=== PATIENT | female | born 1990 | race Caucasian/White ===

== ENCOUNTER 2020-07-31 11:55 | Inpatient (IN) | payer BC, OTHER ==
[2020-07-31 13:27] VITALS: BMI 47.9
[2020-07-31] MEDS: ELECTROLYTE-148 SOLN 1,000 ML IV SCH ×2 (13:30→23:00)
[2020-07-31 14:03] LABS: BASO % 0.1 % (0-2.0); EOS % 1.5 % (0-4.5); HEMATOCRIT 31.4 % (32.4-45.2); HEMOGLOBIN 10.5 GM/dL (10.7-15.3); LYMPH % 15.1 % (8-40); MCHC 33.5 g/dl (32.0-36.0); MEAN CELL VOLUME 83.8 fl (80-96); MEAN PLT VOLUME 9.1 fl (7.5-11.1); MONO % 6.4 % (3.8-10.2); NEUT % 76.9 % (42.8-82.8); PLATELET COUNT 203 K/MM3 (134-434); RBC 3.75 M/mm3 (3.60-5.2); RDW 15.7 % (11.6-15.6); WHITE BLOOD COUNT 8.9 K/mm3 (4.0-10.0)
[2020-07-31 14:10] LABS: INR 0.9 (0.83-1.09); PROTHROMBIN TIME (PATIENT) 10.6 SEC (9.7-13.0)
[2020-07-31 14:13] LABS: ACTIVATED PTT 26.1 SECONDS (25.2-36.5)
[2020-07-31] MEDS ORDERED: DINOPROSTONE 10 MG VAGINAL SUPPOSITORY VG ONE (14:15)
--- NOTE | 2020-07-31 14:17 | HP ---
Past Medical History - Primary Care Physician PCP:: Jenna Crocker - Admission Chief Complaint: oligohydramnios. obesity History of Present Illness: 30 yo EDC EGA 39 week admitted due to oligo and obesity for induction History Source: Patient Limitations to Obtaining History: No Limitations - Past Medical History ...: 1 ...Para: 0 ...Term: 0 ...: 0 ...Spon : 0 ...Induced : 0 ...Living Children: 0 ...Multiple Gestation: 0 ...LMP: 11/02/19 ... Weeks Gestation by Dates: 38.4 ...EDC by Dates: 08/10/20 ...EDC by Sono: 08/08/20 - Past Surgical History Past Surgical History: Yes: None Hx Myomectomy: No Hx Transabdominal Cerclage: No - Smoking History Smoking history: Never smoked Have you smoked in the past 12 months: No - Alcohol/Substance Use Hx Alcohol Use: No Home Medications - Allergies Allergies/Adverse Reactions: Allergies Allergy/AdvReac Type Severity Reaction Status Date / Time No Known Allergies Allergy Verified 07/31/20 12:46 - Home Medications Home Medications: Ambulatory Orders Pnv No.95/Ferrous Fum/Folic AC [ Formula] 1 each PO DAILY 07/31/20 Review of Systems - Review of Systems Constitutional: reports: No Symptoms Eyes: reports: No Symptoms HENT: reports: No Symptoms Neck: reports: No Symptoms Cardiovascular: reports: No Symptoms Respiratory: reports: No Symptoms Gastrointestinal: reports: No Symptoms Genitourinary: reports: No Symptoms Breasts: reports: No Symptoms Reported Musculoskeletal: reports: No Symptoms Integumentary: reports: No Symptoms Neurological: reports: No Symptoms Endocrine: reports: No Symptoms Hematology/Lymphatic: reports: No Symptoms Psychiatric: reports: No Symptoms Physical Exam - Maternity Vital Signs: Vital Signs Temperature 98.2 F 07/31/20 13:00 Pulse Rate 57 L 07/31/20 13:00 Respiratory Rate 18 07/31/20 13:00 Blood Pressure 144/73 07/31/20 13:00 O2 Sat by Pulse Oximetry (%) 98 07/31/20 12:24 Constitutional: Yes: Well Nourished, No Distress, Obese Neck: Yes: WNL Cardiovascular: Yes: WNL Lungs: Clear to auscultation Breast(s): Yes: WNL - Abdominal Exam/OB Number of Fetuses: Single Presentation: Vertex Contractions: No Monitor Mode: External Category: I - Labs Lab Results: CBC, BMP 07/31/20 13:45 Hemorrhage Risk Assessment - Risk Factors Risk Score: 0 Risk Level: Low Risk Problem List - Problems (1) with 38 completed weeks gestation Code(s): Z3A.38 - 38 WEEKS GESTATION OF (2) Oligohydramnios Code(s): O41.00X0 - OLIGOHYDRAMNIOS, UNSP TRIMESTER, NOT APPLICABLE OR UNSP (3) Hypertension affecting in third trimester Code(s): O16.3 - UNSPECIFIED MATERNAL HYPERTENSION, THIRD TRIMESTER Assessment/Plan IUP at 38.6 Cat 1 Oligo Gestational Hypertension Plan Cervidil Labetalol
[2020-07-31 14:34] LABS: BLOOD UREA NITROGEN 7.5 mg/dL (7-18); CALCIUM 8.7 mg/dL (8.5-10.1); CREATININE 0.5 mg/dL (0.55-1.3); POTASSIUM 4.2 mmol/L (3.5-5.1)
[2020-07-31] MEDS ORDERED: LABETALOL HCL 200 MG TABLET (FP) ONE (23:32)
[2020-07-31] MEDS ORDERED: LABETALOL HCL 200 MG TABLET (FP) PO ONE (23:50)
[2020-08-01 00:36] LABS: RETICULOCYTES 2.43 % (0.5-1.5)
[2020-08-01 00:42] LABS: URIC ACID 3.3 mg/dL (2.6-7.2)
[2020-08-01] MEDS ORDERED: LABETALOL HCL 200 MG TABLET (FP) PO ONE ×2 (01:15→18:00)
--- NOTE | 2020-08-01 05:11 | PN ---
Ante-Partal Exam - Subjective Subjective: Pt doing well unaware of contraction Pt with elevated BP and given labetalol Vital Signs: Vital Signs Temperature 98.2 F 07/31/20 22:15 Pulse Rate 64 08/01/20 01:10 Respiratory Rate 08/01/20 01:10 Blood Pressure 140/74 08/01/20 01:10 O2 Sat by Pulse Oximetry (%) 98 07/31/20 12:24 Bleeding: No Headache: No Visual changes: No Right upper quadrant pain: No - Contractions Contractions: No Regularity: Irritability Intensity: Unaware Monitor Mode: External - Exam during Labor Heart Rate: 140 Variability: Moderate Heart Rate Location: [facility] Category: I Monitor Accelerations: Present Monitor Decelerations: None Exam: Vaginal Dilatation (cm): FT Amniotic Membrane Status: Intact Presentation: Vertex Station: -2 - Intrapartum Hemorrhage Risk Risk Score: 0 Risk Level: Low Risk - Assessment/Plan Assessment/Plan: obesity gestational htn cat 1 sp cervidil oligo Plan pit jun
[2020-08-01] MEDS: ELECTROLYTE-148 SOLN 1,000 ML IV SCH ×3 (06:15→22:00)
[2020-08-01] MEDS: OXYTOCIN 30 UNITS in 0.9% NS 30 UNIT/500 ML INFUS.BAG IVPB SCH (08:00)
[2020-08-01] MEDS ORDERED: OXYTOCIN 30 UNITS in 0.9% NS 30 UNIT/500 ML INFUS.BAG IVPB ONE (08:03)
[2020-08-01] MEDS ORDERED: BUTORPHANOL TARTRATE 2 MG/ML VIAL ONE (16:35)
[2020-08-01] MEDS ORDERED: PROMETHAZINE HCL 25 MG/1 ML VIAL ONE (16:35)
[2020-08-01] MEDS ORDERED: BUTORPHANOL TARTRATE 2 MG/ML VIAL IVPUSH ONE (16:45)
[2020-08-01] MEDS ORDERED: PROMETHAZINE HCL 25 MG/1 ML VIAL IVPUSH ONE (16:45)
[2020-08-01] MEDS ORDERED: LABETALOL HCL 200 MG TABLET (FP) ONE ×2 (17:36→21:31)
--- NOTE | 2020-08-01 18:38 | PN ---
Ante-Partal Exam - Subjective Subjective: Pt on 11 mu pitocin Vital Signs: Vital Signs Temperature 98.1 F 08/01/20 16:00 Pulse Rate 65 08/01/20 18:00 Respiratory Rate 20 08/01/20 18:00 Blood Pressure 154/75 08/01/20 18:00 O2 Sat by Pulse Oximetry (%) 98 07/31/20 12:24 Bleeding: No Headache: No Visual changes: No Right upper quadrant pain: No - Contractions Contractions: Yes Regularity: Regular Intensity: Moderate Monitor Mode: External - Exam during Labor Heart Rate: 150 Variability: Moderate Heart Rate Location: [facility] Category: I Monitor Accelerations: Present Monitor Decelerations: None Exam: Vaginal Dilatation (cm): 2--3 Effacement (%): 80 Amniotic Membrane Status: Ruptured (attempted arom) Presentation: Vertex Station: -2 - Intrapartum Hemorrhage Risk Medium Risk Factors: None High Risk Factors: None Risk Score: 0 Risk Level: Low Risk - Assessment/Plan Assessment/Plan: Active labor cat1 atttempted arom obesity plan continue present management pt refusing epidural at this time
[2020-08-01] MEDS ORDERED: FENTANYL/BUPIVACAINE/NS/PF - PCEA - 50 ML DISP.SYRIN EP ONE (21:02)
[2020-08-01] MEDS ORDERED: BUPIVACAINE HCL/PF 0.25% (2.5MG/ML) 10 ML VIAL ONE (21:03)
[2020-08-01] MEDS: LABETALOL HCL 200 MG TABLET (FP) PO SCH (21:33)
[2020-08-01 21:38] LABS: HEMATOCRIT 33.1 % (32.4-45.2); HEMOGLOBIN 10.9 GM/dL (10.7-15.3); MCH 27.8 pg (25.7-33.7); MCHC 32.8 g/dl (32.0-36.0); MEAN CELL VOLUME 84.7 fl (80-96); MEAN PLT VOLUME 8.5 fl (7.5-11.1); PLATELET COUNT 198 K/MM3 (134-434); RBC 3.91 M/mm3 (3.60-5.2); RDW 15.5 % (11.6-15.6); WHITE BLOOD COUNT 11.9 K/mm3 (4.0-10.0)
[2020-08-01] MEDS ORDERED: NALOXONE HCL 0.4 MG/ML VIAL IVPUSH PRN (21:53)
[2020-08-01 21:55] LABS: INR 0.89 (0.83-1.09); PROTHROMBIN TIME (PATIENT) 10.5 SEC (9.7-13.0)
[2020-08-01 21:57] LABS: ACTIVATED PTT 26.8 SECONDS (25.2-36.5)
[2020-08-01] MEDS ORDERED: FENTANYL/BUPIVACAINE/NS/PF - PCEA - 50 ML DISP.SYRIN EP SCH (22:00)
[2020-08-02] MEDS ORDERED: FENTANYL/BUPIVACAINE/NS/PF - PCEA - 50 ML DISP.SYRIN EP ONE (03:11)
[2020-08-02] MEDS ORDERED: ELECTROLYTE-148 SOLN 500 ML IV ONE (03:30)
[2020-08-02] MEDS ORDERED: CITRIC ACID/SODIUM CITRATE 30 ML UNIT-DOSE CUP PO ONE ×2 (03:30→03:59)
--- NOTE | 2020-08-02 03:52 | PN ---
Ante-Partal Exam - Subjective Vital Signs: Vital Signs Temperature 98.1 F 08/01/20 16:00 Pulse Rate 72 08/02/20 03:00 Respiratory Rate 20 08/02/20 03:00 Blood Pressure 138/81 08/02/20 03:00 O2 Sat by Pulse Oximetry (%) 100 08/02/20 03:00 Bleeding: No Headache: No Visual changes: No Right upper quadrant pain: No - Exam during Labor Variability: Moderate Category: II Monitor Decelerations: Early Exam: Vaginal Dilatation (cm): 5 Effacement (%): 80 Amniotic Membrane Status: Ruptured Presentation: Vertex Station: -2 - Assessment/Plan Assessment/Plan: Nonreassuring Cat2 Oligo failure to progress Obesity Plan Will do CS - pt and fob agrees notify anesthesia notify merchandising lead
[2020-08-02] MEDS ORDERED: WITCH HAZEL 50% (TUCKS) 40 PAD/JAR PAD TP PRN (03:56)
[2020-08-02] MEDS ORDERED: METHYLERGONOVINE MALEATE 0.2 MG/1 ML AMP IM PRN (03:56)
[2020-08-02] MEDS ORDERED: BENZOCAINE 28 GM HEMORRHOIDAL OINTMENT RC PRN (03:56)
[2020-08-02] MEDS ORDERED: oxyCODONE HCL 5 MG TABLET PO PRN (03:56)
[2020-08-02] MEDS ORDERED: diphenhydrAMINE HCL 25 MG CAPSULE (FP) PO PRN (03:56)
[2020-08-02] MEDS ORDERED: BENZOCAINE 20% 57 GM BOTTLE TP PRN (03:56)
[2020-08-02] MEDS ORDERED: ACETAMINOPHEN 1000 MG/100 ML VIAL (NON FORMULARY) IVPB PRN (03:58)
[2020-08-02] MEDS ORDERED: LIDO 2%/EPI 1:200000 PRESRVFRE (20 ML SDVIAL) ONE (04:24)
[2020-08-02] MEDS ORDERED: morphine SULFATE/PF 0.5 MG/ML (2cc Syringe - QUVA) ONE ×2 (04:33→05:32)
[2020-08-02] MEDS ORDERED: KETOROLAC TROMETHAMINE 30 MG/1 ML VIAL ONE (04:34)
[2020-08-02] MEDS ORDERED: OXYTOCIN 10 UNITS/ML VIAL ONE (04:34)
[2020-08-02] MEDS ORDERED: ceFAZolin SODIUM 1 GM VIAL ONE (04:34)
[2020-08-02] MEDS ORDERED: OXYTOCIN 20 UNITS in 0.9% NS 20 UNIT/1,000 ML INFUS.BAG IV ONE (05:55)
[2020-08-02] MEDS ORDERED: ONDANSETRON 4 MG/2 ML VIAL IVPUSH PRN (05:59)
[2020-08-02] MEDS: OXYTOCIN 20 UNITS in 0.9% NS 20 UNIT/1,000 ML INFUS.BAG IV SCH ×2 (06:00→15:48)
[2020-08-02] MEDS: LABETALOL HCL 200 MG TABLET (FP) PO SCH ×3 (06:30→21:23)
--- NOTE | 2020-08-02 06:37 | OP ---
Operative Note - Note: Operative Date: 08/02/20 Pre-Operative Diagnosis: nonreasurring tracing. obesity. oligohydramnios. iup at 39 week Operation: Primary Low transverse section Findings: live male infant Post-Operative Diagnosis: Same as Pre-op Surgeon: Jenna Crocker E Mail System Administrator: Jj Wright Anesthesia: Epidural Estimated Blood Loss (mls): 600 Operative Report Dictated: Yes
[2020-08-02] MEDS ORDERED: LABETALOL HCL 200 MG TABLET (FP) ONE (06:54)
[2020-08-02 07:20] LABS: CORD BASE EXCESS -3.7 mmol/L (0-2); CORD PCO2 47.4 mmHg (30-78); CORD pH 7.303 (7.14-7.44)
[2020-08-02 07:23] LABS: CORD HCO3 25.3 mmHg (20-29); CORD PCO2 65.5 mmHg (30-78); CORD pH 7.204 (7.14-7.44)
[2020-08-02] MEDS ORDERED: ACETAMINOPHEN INJECTION 100 ML IVPB ONE (08:20)
[2020-08-02] MEDS ORDERED: CEFAZOLIN 1 GM in DEXTROSE 5%-WATER - 50 ML IVPB SCH (10:00)
[2020-08-02] MEDS: IBUPROFEN 800 MG/8 ML IJ IVPB PRN ×2 (15:47→22:15)
[2020-08-02] MEDS: CEFAZOLIN 1 GM/D5W 1 GM/50 ML BAG IVPB SCH (17:44)
[2020-08-02] MEDS: ELECTROLYTE-148 SOLN 1,000 ML IV SCH (20:03)
[2020-08-02] MEDS: OXYTOCIN 30 UNITS in 0.9% NS 30 UNIT/500 ML INFUS.BAG IVPB SCH (20:03)
[2020-08-02] MEDS: BUTORPHANOL TARTRATE 1 MG/ML VIAL IVPB SCH ×2 (20:05→20:06)
[2020-08-03] MEDS: CEFAZOLIN 1 GM/D5W 1 GM/50 ML BAG IVPB SCH (02:37)
[2020-08-03] MEDS ORDERED: BISACODYL 10 MG SUPP.RECT PR PRN (03:56)
[2020-08-03] MEDS: OXYTOCIN 20 UNITS in 0.9% NS 20 UNIT/1,000 ML INFUS.BAG IV SCH (05:54)
[2020-08-03] MEDS: ELECTROLYTE-148 SOLN 1,000 ML IV SCH (05:55)
[2020-08-03] MEDS: OXYTOCIN 30 UNITS in 0.9% NS 30 UNIT/500 ML INFUS.BAG IVPB SCH (05:55)
[2020-08-03] MEDS: LABETALOL HCL 200 MG TABLET (FP) PO SCH ×3 (06:32→22:05)
[2020-08-03 08:52] LABS: HEMOGLOBIN 8.1 GM/dL (10.7-15.3); MCH 28.7 pg (25.7-33.7); MEAN CELL VOLUME 84.5 fl (80-96); MEAN PLT VOLUME 8.5 fl (7.5-11.1); PLATELET COUNT 147 K/MM3 (134-434); RBC 2.84 M/mm3 (3.60-5.2); RDW 15.6 % (11.6-15.6); WHITE BLOOD COUNT 8.3 K/mm3 (4.0-10.0)
[2020-08-03] MEDS: SIMETHICONE 80 MG TAB.CHEW (FP) PO PRN ×2 (10:39→22:05)
[2020-08-03] MEDS: ACETAMINOPHEN 325 MG TABLET (FP) PO PRN ×2 (10:39→22:08)
[2020-08-03] MEDS: oxyCODONE HCL 5 MG TABLET PO PRN (10:40)
[2020-08-03] MEDS ORDERED: DIPHTH,PERTUSS(ACELL),TET 0.5 ML DISP.SYRIN IM ONE (13:00)
--- NOTE | 2020-08-03 13:59 | PN ---
Progress Note (short form) - Note Progress Note: 30F s/p C/S +DM. pt doing well. pain controlled. good result anesthetic care
[2020-08-04] MEDS: LABETALOL HCL 200 MG TABLET (FP) PO SCH (06:20)
[2020-08-04] MEDS: ACETAMINOPHEN 325 MG TABLET (FP) PO PRN ×3 (06:21→21:12)
[2020-08-04] MEDS: SIMETHICONE 80 MG TAB.CHEW (FP) PO PRN ×2 (06:21→21:11)
--- NOTE | 2020-08-04 09:34 | PN ---
Progress Note (SOAP) - Subjective Chief Complaint: Pt on labetalol tid pt doing well - Current Medications Current Medications: Active Medications Acetaminophen (Tylenol -) 650 mg PO Q4H PRN PRN Reason: FEVER Last Admin: 08/04/20 06:21 Dose: 650 mg Documented by: Benzocaine (Americaine 20% [place] -) 1 spray TP PRN PRN PRN Reason: Pain - Topical Benzocaine (Americaine Ointment -) 1 applic RC PRN PRN PRN Reason: Pain - Topical Bisacodyl (Dulcolax Suppository -) 10 mg [place] PRN PRN PRN Reason: CONSTIPATION Diphenhydramine HCl (Benadryl -) 25 mg PO Q6H PRN PRN Reason: FOR ITCHING Oxytocin/Sodium Chloride (Normal Saline+30 Units Oxytocin) 30 unit in 500 mls @ 1 mls/hr IVPB [facility]; Protocol Last Admin: 08/03/20 05:55 Dose: Not Given Documented by: Oxytocin/Sodium Chloride (Normal Saline+20 Units Oxytocin -) 20 unit in 1,000 mls @ 125 mls/hr IV ASDIR [facility] Last Admin: 08/03/20 05:54 Dose: 125 mls/hr Documented by: Parenteral Electrolytes (Plasma-Lyte 148 -) 1,000 mls @ 125 mls/hr IV ASDIR [facility] Last Admin: 08/03/20 05:55 Dose: Not Given Documented by: Ibuprofen (Caldolor Injection -) 800 mg IVPB Q6H PRN PRN Reason: Fever - If PO not effective. Last Admin: 08/02/20 22:15 Dose: 800 mg Documented by: Labetalol HCl (Normodyne -) 200 mg PO TID [facility] Last Admin: 08/04/20 06:20 Dose: 200 mg Documented by: Methylergonovine Maleate (Methergine Injection -) 0.2 mg IM Q4H PRN PRN Reason: EXCESSIVE BLEEDING Naloxone HCl (Narcan -) 0.4 mg IVPUSH PRN PRN PRN Reason: Sedation Ondansetron HCl (Zofran Injection) 4 mg IVPUSH Q4H PRN PRN Reason: NAUSEA Oxycodone HCl (Roxicodone -) 5 mg PO Q4H PRN PRN Reason: PAIN LEVEL 1 - 3 Last Admin: 08/03/20 10:40 Dose: 5 mg Documented by: Oxycodone HCl (Roxicodone -) 10 mg PO Q4H PRN PRN Reason: PAIN LEVEL 4 - 6 Senna/Docusate Sodium (Pericolace -) 2 tablet PO HS PRN PRN Reason: CONSTIPATION Last Admin: 08/03/20 22:06 Dose: 2 tablet Documented by: Simethicone (Mylicon -) 80 mg PO Q4H PRN PRN Reason: GAS Last Admin: 08/04/20 06:21 Dose: 80 mg Documented by: Prec[place]/Glycerin (Tucks Pads -) 1 pad TP PRN PRN PRN Reason: Pain - Topical - Objective Vital Signs: Vital Signs Temperature 97.8 F 08/04/20 06:17 Pulse Rate 96 H 08/04/20 06:17 Respiratory Rate 08/04/20 06:17 Blood Pressure 143/98 08/04/20 06:17 O2 Sat by Pulse Oximetry (%) 97 08/03/20 14:19 Constitutional: Yes: Well Nourished, Obese Gastrointestinal: Yes: WNL, Soft ....Post : Yes: Uterus firm, Uterus non-tender Extremities: Yes: WNL Edema: Yes Edema: LLE: Trace, RLE: Trace Wound/Incision: Yes: Clean/Dry, Well Approximated, Steri Strips, Open to air Neurological: Yes: WNL, Alert, Oriented Labs Lab Results: CBCD WBC 8.3 K/mm3 (4.0-10.0) 08/03/20 07:55 RBC 2.84 M/mm3 (3.60-5.2) L 08/03/20 07:55 Hgb 8.1 GM/dL (10.7-15.3) L 08/03/20 07:55 Hct 24.0 % (32.4-45.2) L D 08/03/20 07:55 MCV 84.5 fl (80-96) 08/03/20 07:55 MCHC 34.0 g/dl (32.0-36.0) 08/03/20 07:55 RDW 15.6 % (11.6-15.6) 08/03/20 07:55 Plt Count 147 K/MM3 (134-434) D 08/03/20 07:55 MPV 8.5 fl (7.5-11.1) 08/03/20 07:55 CMP Sodium 139 mmol/L (136-145) 07/31/20 13:45 Potassium 4.2 mmol/L (3.5-5.1) 07/31/20 13:45 Chloride 107 mmol/L (98-107) 07/31/20 13:45 Carbon Dioxide 25 mmol/L (21-32) 07/31/20 13:45 Anion Gap 7 MMOL/L (8-16) L 07/31/20 13:45 BUN 7.5 mg/dL (7-18) 07/31/20 13:45 Creatinine 0.5 mg/dL (0.55-1.3) L 07/31/20 13:45 Random Glucose 92 mg/dL (74-106) 07/31/20 13:45 Calcium 8.7 mg/dL (8.5-10.1) 07/31/20 13:45 AST 17 U/L (15-37) 07/31/20 23:45 ALT 22 U/L (13-61) 07/31/20 23:45 Problem List - Problems (1) with 38 completed weeks gestation Code(s): Z3A.38 - 38 WEEKS GESTATION OF (2) Oligohydramnios Code(s): O41.00X0 - OLIGOHYDRAMNIOS, UNSP TRIMESTER, NOT APPLICABLE OR UNSP (3) Hypertension affecting in third trimester Problems reviewed: Yes Code(s): O16.3 - UNSPECIFIED MATERNAL HYPERTENSION, THIRD TRIMESTER (4) Status post primary low transverse section Problems reviewed: Yes Code(s): Z98.891 - HISTORY OF UTERINE SCAR FROM PREVIOUS SURGERY Assessment/Plan SP low transverse section POD 2 Gestational Hypertension Plan Procardia XL 30 mg renal consult Labetalol prn continue management
[2020-08-04] MEDS ORDERED: NIFEdipine E.R. 30 MG TABLET PO SCH (10:00)
--- NOTE | 2020-08-04 10:11 | OP ---
DATE OF OPERATION: 08/02/2020 PREOPERATIVE DIAGNOSES: Nonreassuring tracing, obesity, and oligohydramnios, and intrauterine at 39 weeks. OPERATION: Primary low-transverse section. PREOPERATIVE DIAGNOSES: Nonreassuring tracing, obesity, and oligohydramnios, and intrauterine at 39 weeks, and live male . SURGEON: Jenna Crocker MD LOGISTICS DIRECTOR: LEELA Bauman; unavailable. ANESTHESIA: Epidural. PROCEDURE: The patient was taken to the operating room, placed in supine position, prepped and draped in usual sterile fashion. A timeout was performed in accordance with hospital regulations. A Pfannenstiel skin incision was made with the scalpel. Cautery was then used to go through layers of abdominal wall to the level of the fascia. Fascia was cut in the midline, and cautery was then used to open the fascia in a smiling fashion. Kochers were then used to bluntly and sharply dissect the rectus muscle of the fascia. Muscle was split in the midline. Peritoneal cavity was then entered and carried upward and downward. Bladder retractor was then placed. A scalpel was then used to make a low transverse uterine incision. The incision was carried upward using the bandage scissors. A live male was delivered in LOP position. Nose and mouth suction was performed. Shoulders were delivered without difficulty. Cord was clamped and cut. Cord blood obtained. Cord pH obtained. Infant was handed to stonemason. Uterus was exteriorized, and placenta was spontaneously removed from the uterus. Uterine incision was then cleaned with clean lap pads. Uterus was then closed using 0 Biosyn suture, first layer continuous interlocking and second layer imbricating the first layer. Tubes and ovaries were noted to be normal. Abdominal cavity cleaned with clean lap pad. Uterus interiorized. Abdominal sweep done. Peritoneum closed using 0 Biosyn suture in a continuous stitch. Muscles were approximated in midline using 0 Biosyn suture. Fascia was then closed using 0 Vicryl suture in 2 parts. Subcutaneous was closed using interrupted suture using 0 Biosyn suture. Skin was then closed using 3-0 Vicryl in subcuticular fashion. Wound was washed and dressed. Patient tolerated the procedure well and was taken to the recovery room in stable condition. JENNA CROCKER M.D. ROSARIO/[id number]
[2020-08-04 11:46] LABS: EPI CELLS 23 /uL (0-25.1); HYALINE CASTS 1 /uL (0-3.1); PH,URINE 6.5 (5.0-8.0); URINE APPEARANCE CLEAR; URINE BACTERIA 720 /uL (0-1359); URINE BILIRUBIN NEGATIVE (NEGATIVE); URINE COLOR YELLOW; URINE GLUCOSE (UA) NEGATIVE (NEGATIVE); URINE KETONE NEGATIVE (NEGATIVE); URINE LEUK ESTERASE NEGATIVE (NEGATIVE); URINE NITRITE NEGATIVE (NEGATIVE); URINE PROTEIN NEGATIVE (NEGATIVE); URINE RBC 402 /uL (0-23.9); URINE UROBILINOGEN 0.2 mg/dL (0.2-1.0); URINE WBC 14 /uL (0-25.8)
--- NOTE | 2020-08-04 11:53 | CON.NEP ---
Consult Consult Specialty:: Nephrology Referred by:: Dr. Crocker Reason for Consultation:: hypertension - History of Present Illness Chief Complaint: hypertension History of Present Illness: This is a 30 year old woman with no signifincat past medical history who presented at 39 weeks gestation with oligohydramios and elevated blood pressures now s/p with persistent hypertension. Seen and examined at the bedside. She offers no acute complaints. Denies any headache, chest pain, shortness of breath, fever, chills or abdominal pain. No N/V. Has leg swelling. Started on Labetalol TID earlier this admission now started on Nifedipine this AM. Mother has essential hypertension diagnosed in her 40s. - History Source History Provided By: Patient Limitations to Obtaining History: No Limitations - Past Surgical History Past Surgical History: Yes: None - Alcohol/Substance Use Hx Alcohol Use: No - Smoking History Smoking history: Never smoked Have you smoked in the past 12 months: No Home Medications - Allergies Allergies/Adverse Reactions: Allergies Allergy/AdvReac Type Severity Reaction Status Date / Time No Known Allergies Allergy Verified 07/31/20 12:46 - Home Medications Home Medications: Ambulatory Orders Pnv No.95/Ferrous Fum/Folic AC [ Formula] 1 each PO DAILY 07/31/20 Family Medical History Family History: Unremarkable Review of Systems - Review of Systems Constitutional: reports: No Symptoms Eyes: reports: No Symptoms HENT: reports: No Symptoms Neck: reports: No Symptoms Cardiovascular: reports: No Symptoms Respiratory: reports: No Symptoms Gastrointestinal: reports: No Symptoms Genitourinary: reports: No Symptoms Musculoskeletal: reports: No Symptoms Integumentary: reports: No Symptoms Neurological: reports: No Symptoms Endocrine: reports: No Symptoms Nephrology Consult - Height Height: 5 ft 1 in - Weight Weight: 115.212 kg - BMI Body Mass Index (BMI): 47.9 - Lab Results CBC,BMP: CBC, BMP 08/03/20 07:55 07/31/20 13:45 Anion Gap: Anion Gap Anion Gap 7 MMOL/L (8-16) L 07/31/20 13:45 - Physical Examination Vital Signs: Vital Signs Temperature 98.3 F 08/04/20 10:00 Pulse Rate 73 08/04/20 10:00 Respiratory Rate 18 08/04/20 10:00 Blood Pressure 141/83 08/04/20 10:00 O2 Sat by Pulse Oximetry (%) 97 08/03/20 14:19 Constitutional: Yes: No Distress, Calm HENT: Yes: Atraumatic Neck: Yes: Supple Cardiovascular: Yes: Regular Rate and Rhythm Respiratory: Yes: Regular Gastrointestinal: Yes: Soft Renal/: No: Anuria Extremities: No: Cold, Cool, Cyanosis Edema: Yes Edema: LLE: 1+, RLE: 1+ Neurological: Yes: Alert Assessment/Plan 30 year old woman with no significant past medical history who presented at 39 weeks gestation with oligohydramios and elevated blood pressures now s/p with persistent hypertension. 1. hypertension secondary to preeclampsia vs. induced hypertension vs. primary underlying hypertension 2. 39 weeks gestation s/p 3. Oligohydramios 4. Anemia Check UA and urine protein to creatinine ratio not access for proteinuria. BP goal < 140/90. Continue Nifedpine ER 30mg daily, change Labetalol 200mg to Q6h prn Ideally would like to discharge on 1 medication Maintain a low sodium diet OB follow up Anticipate discharge tomorrow. Thank you Marcus Ortiz DO
[2020-08-04] MEDS ORDERED: LABETALOL HCL 200 MG TABLET (FP) PO ONE (18:28)
[2020-08-04] MEDS: LABETALOL HCL 200 MG TABLET (FP) PO PRN (18:38)
[2020-08-04] MEDS: oxyCODONE HCL 5 MG TABLET PO PRN (21:12)
[2020-08-04] MEDS ORDERED: SENNOSIDES/DOCUSATE COMBO (SENNA PLUS) TABLET (UD) PO PRN (22:00)
[2020-08-05] MEDS: LABETALOL HCL 200 MG TABLET (FP) PO PRN ×3 (05:37→23:40)
[2020-08-05 07:17] LABS: HEMATOCRIT 25.4 % (32.4-45.2); HEMOGLOBIN 8.5 GM/dL (10.7-15.3); MCH 27.9 pg (25.7-33.7); MCHC 33.3 g/dl (32.0-36.0); MEAN CELL VOLUME 83.8 fl (80-96); MEAN PLT VOLUME 7.6 fl (7.5-11.1); PLATELET COUNT 196 K/MM3 (134-434); RBC 3.03 M/mm3 (3.60-5.2); RDW 16.1 % (11.6-15.6); WHITE BLOOD COUNT 7.6 K/mm3 (4.0-10.0)
[2020-08-05] MEDS: ACETAMINOPHEN 325 MG TABLET (FP) PO PRN ×3 (08:19→16:15)
[2020-08-05] MEDS: SIMETHICONE 80 MG TAB.CHEW (FP) PO PRN ×2 (08:19→16:16)
--- NOTE | 2020-08-05 08:23 | PN ---
Progress Note (SOAP) - Current Medications Current Medications: Active Medications Acetaminophen (Tylenol -) 650 mg PO Q4H PRN PRN Reason: FEVER Last Admin: 08/05/20 08:19 Dose: 650 mg Documented by: Benzocaine (Americaine 20% [place] -) 1 spray TP PRN PRN PRN Reason: Pain - Topical Benzocaine (Americaine Ointment -) 1 applic RC PRN PRN PRN Reason: Pain - Topical Bisacodyl (Dulcolax Suppository -) 10 mg [place] PRN PRN PRN Reason: CONSTIPATION Diphenhydramine HCl (Benadryl -) 25 mg PO Q6H PRN PRN Reason: FOR ITCHING Oxytocin/Sodium Chloride (Normal Saline+30 Units Oxytocin) 30 unit in 500 mls @ 1 mls/hr IVPB TITR [facility]; Protocol Last Admin: 08/03/20 05:55 Dose: Not Given Documented by: Oxytocin/Sodium Chloride (Normal Saline+20 Units Oxytocin -) 20 unit in 1,000 mls @ 125 mls/hr IV ASDIR [facility] Last Admin: 08/03/20 05:54 Dose: 125 mls/hr Documented by: Parenteral Electrolytes (Plasma-Lyte 148 -) 1,000 mls @ 125 mls/hr IV ASDIR [facility] Last Admin: 08/03/20 05:55 Dose: Not Given Documented by: Ibuprofen (Caldolor Injection -) 800 mg IVPB Q6H PRN PRN Reason: Fever - If PO not effective. Last Admin: 08/02/20 22:15 Dose: 800 mg Documented by: Labetalol HCl (Normodyne -) 200 mg PO Q6H PRN PRN Reason: HYPERTENSION Last Admin: 08/05/20 05:37 Dose: 200 mg Documented by: Methylergonovine Maleate (Methergine Injection -) 0.2 mg IM Q4H PRN PRN Reason: EXCESSIVE BLEEDING Naloxone HCl (Narcan -) 0.4 mg IVPUSH PRN PRN PRN Reason: Sedation Nifedipine (Procardia Xl -) 60 mg PO DAILY@0900 JUAN LUIS Ondansetron HCl (Zofran Injection) 4 mg IVPUSH Q4H PRN PRN Reason: NAUSEA Senna/Docusate Sodium (Pericolace -) 2 tablet PO HS PRN PRN Reason: CONSTIPATION Last Admin: 08/03/20 22:06 Dose: 2 tablet Documented by: Simethicone (Mylicon -) 80 mg PO Q4H PRN PRN Reason: GAS Last Admin: 08/05/20 08:19 Dose: 80 mg Documented by: Precious [place]/Glycerin (Tucks Pads -) 1 pad TP PRN PRN PRN Reason: Pain - Topical - Objective Vital Signs: Vital Signs Temperature 98.7 F 08/04/20 22:00 Pulse Rate 80 08/05/20 05:30 Respiratory Rate 18 08/05/20 05:30 Blood Pressure 152/85 08/05/20 05:30 O2 Sat by Pulse Oximetry (%) 98 08/04/20 22:00 Constitutional: Yes: Well Nourished, No Distress Gastrointestinal: Yes: Soft, Abdomen, Obese ....Post : Yes: Uterus firm, Uterus non-tender Breast(s): Yes: WNL Extremities: Yes: WNL Edema: No Wound/Incision: Yes: Clean/Dry, Well Approximated Neurological: Yes: WNL, Alert, Oriented Labs Lab Results: CBCD WBC 7.6 K/mm3 (4.0-10.0) 08/05/20 06:45 RBC 3.03 M/mm3 (3.60-5.2) L 08/05/20 06:45 Hgb 8.5 GM/dL (10.7-15.3) L 08/05/20 06:45 Hct 25.4 % (32.4-45.2) L 08/05/20 06:45 MCV 83.8 fl (80-96) 08/05/20 06:45 MCHC 33.3 g/dl (32.0-36.0) 08/05/20 06:45 RDW 16.1 % (11.6-15.6) H 08/05/20 06:45 Plt Count 196 K/MM3 (134-434) D 08/05/20 06:45 MPV 7.6 fl (7.5-11.1) D 08/05/20 06:45 CMP Sodium 139 mmol/L (136-145) 07/31/20 13:45 Potassium 4.2 mmol/L (3.5-5.1) 07/31/20 13:45 Chloride 107 mmol/L (98-107) 07/31/20 13:45 Carbon Dioxide 25 mmol/L (21-32) 07/31/20 13:45 Anion Gap 7 MMOL/L (8-16) L 07/31/20 13:45 BUN 7.5 mg/dL (7-18) 07/31/20 13:45 Creatinine 0.5 mg/dL (0.55-1.3) L 07/31/20 13:45 Random Glucose 92 mg/dL (74-106) 07/31/20 13:45 Calcium 8.7 mg/dL (8.5-10.1) 07/31/20 13:45 AST 17 U/L (15-37) 07/31/20 23:45 ALT 22 U/L (13-61) 07/31/20 23:45 Problem List - Problems (1) with 38 completed weeks gestation Code(s): Z3A.38 - 38 WEEKS GESTATION OF (2) Oligohydramnios Code(s): O41.00X0 - OLIGOHYDRAMNIOS, UNSP TRIMESTER, NOT APPLICABLE OR UNSP (3) Hypertension affecting in third trimester Code(s): O16.3 - UNSPECIFIED MATERNAL HYPERTENSION, THIRD TRIMESTER (4) Status post primary low transverse section Code(s): Z98.891 - HISTORY OF UTERINE SCAR FROM PREVIOUS SURGERY Assessment/Plan SP low transverse section POD 3 Gestational Hypertension Plan Procardia XL 30 mg renal consult Labetalol prn continue management
[2020-08-05] MEDS: NIFEdipine E.R 60 MG TABLET PO SCH (08:37)
--- NOTE | 2020-08-05 11:45 | PN ---
Progress Note, Physician History of Present Illness: Seen and examined at the bedside awake and alert offers no acute complaints did not sleep well last night BP noted to be elevated overnight as well Nurse reports she had a headache this AM. - Current Medication List Current Medications: Active Medications Acetaminophen (Tylenol -) 650 mg PO Q4H PRN PRN Reason: FEVER Last Admin: 08/05/20 08:19 Dose: 650 mg Documented by: Benzocaine (Americaine 20% [place] -) 1 spray TP PRN PRN PRN Reason: Pain - Topical Benzocaine (Americaine Ointment -) 1 applic RC PRN PRN PRN Reason: Pain - Topical Bisacodyl (Dulcolax Suppository -) 10 mg [place] PRN PRN PRN Reason: CONSTIPATION Diphenhydramine HCl (Benadryl -) 25 mg PO Q6H PRN PRN Reason: FOR ITCHING Oxytocin/Sodium Chloride (Normal Saline+30 Units Oxytocin) 30 unit in 500 mls @ 1 mls/hr IVPB TITR [facility]; Protocol Last Admin: 08/03/20 05:55 Dose: Not Given Documented by: Oxytocin/Sodium Chloride (Normal Saline+20 Units Oxytocin -) 20 unit in 1,000 mls @ 125 mls/hr IV ASDIR [facility] Last Admin: 08/03/20 05:54 Dose: 125 mls/hr Documented by: Parenteral Electrolytes (Plasma-Lyte 148 -) 1,000 mls @ 125 mls/hr IV ASDIR [facility] Last Admin: 08/03/20 05:55 Dose: Not Given Documented by: Ibuprofen (Caldolor Injection -) 800 mg IVPB Q6H PRN PRN Reason: Fever - If PO not effective. Last Admin: 08/02/20 22:15 Dose: 800 mg Documented by: Labetalol HCl (Normodyne -) 200 mg PO Q6H PRN PRN Reason: HYPERTENSION Last Admin: 08/05/20 05:37 Dose: 200 mg Documented by: Methylergonovine Maleate (Methergine Injection -) 0.2 mg IM Q4H PRN PRN Reason: EXCESSIVE BLEEDING Naloxone HCl (Narcan -) 0.4 mg IVPUSH PRN PRN PRN Reason: Sedation Nifedipine (Procardia Xl -) 60 mg PO DAILY@0900 [facility] Last Admin: 08/05/20 08:37 Dose: 60 mg Documented by: Ondansetron HCl (Zofran Injection) 4 mg IVPUSH Q4H PRN PRN Reason: NAUSEA Senna/Docusate Sodium (Pericolace -) 2 tablet PO HS PRN PRN Reason: CONSTIPATION Last Admin: 08/03/20 22:06 Dose: 2 tablet Documented by: Simethicone (Mylicon -) 80 mg PO Q4H PRN PRN Reason: GAS Last Admin: 08/05/20 08:19 Dose: 80 mg Documented by: Precious [place]/Glycerin (Tucks Pads -) 1 pad TP PRN PRN PRN Reason: Pain - Topical - Objective Vital Signs: Vital Signs Temperature 98.6 F 08/05/20 08:40 Pulse Rate 74 08/05/20 08:40 Respiratory Rate 08/05/20 08:40 Blood Pressure 137/90 08/05/20 08:40 O2 Sat by Pulse Oximetry (%) 98 08/04/20 22:00 Constitutional: Yes: No Distress, Calm Neck: Yes: Supple Cardiovascular: Yes: Regular Rate and Rhythm Respiratory: Yes: Regular Edema: Yes Edema: LLE: Trace, RLE: Trace Labs: CBC, BMP 08/05/20 06:45 07/31/20 13:45 INR, PTT INR 0.89 (0.83-1.09) 08/01/20 21:20 Assessment/Plan 30 year old woman with no significant past medical history who presented at 39 weeks gestation with oligohydramios and elevated blood pressures now s/p C- section with persistent hypertension. 1. hypertension secondary to induced hypertension vs. primary underlying hypertension 2. 39 weeks gestation s/p 3. Oligohydramios 4. Anemia UA showed no protein and UPCR was < 0.3 and thus not consistent with preeclampsia Increased Nifedpine ER to 60mg this am BP goal < 140/90. Monitor BP over the nexzt 6-8 hours, if BP is more moderated and pt does not experience symptoms of dizziness or lightheadedness she can be discharged home on Nifedipine ER 30mg BID. Symptoms of hypotension were discussed with the patient. Advised to monitor and log BP twice daily Maintain a low sodium diet OB follow up If discharged can follow up in our office next week. Thank you Marcus Ortiz DO
[2020-08-05 20:35] LABS: RETICULOCYTES 3.15 % (0.5-1.5)
[2020-08-05 21:00] LABS: URIC ACID 3.4 mg/dL (2.6-7.2)
[2020-08-06] MEDS: ACETAMINOPHEN 325 MG TABLET (FP) PO PRN (03:09)
[2020-08-06] MEDS: NIFEdipine E.R 60 MG TABLET PO SCH (10:30)
--- NOTE | 2020-08-06 10:46 | DS ---
Physical Exam-DIRECTOR OPERATIONS Vital Signs: Vital Signs Temperature 97.6 F 08/06/20 02:00 Pulse Rate 89 08/06/20 06:00 Respiratory Rate 18 08/06/20 06:00 Blood Pressure 117/78 08/06/20 06:00 O2 Sat by Pulse Oximetry (%) 98 08/04/20 22:00 Constitutional: Yes: Well Nourished, No Distress, Obese Labs: CBC, BMP 08/05/20 19:15 07/31/20 13:45 Delivery - Delivery Type of Anesthesia: Epidural Episiotomy/Laceration: None EBL (cc): 600 Delivery, Single - Stages of Labor Date 1st Stage Initiatied: 08/01/20 Time 1st Stage Initiated: 18:30 Date of Delivery: 08/02/20 Time of Delivery: 05:12 Time Placenta Delivered: 05:13 - Condition of Disaster Recovery Analyst/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 Present: Yes Name: Anna Camp Gender: Male Weight: 6 lb 15 oz Position: OA Total Hours ROM (Hrs/Mins): 10H42M - 1 Minute Total Score: 9 5 Minutes Total Score: 9 - [place] Feeding Plan Initial Plan: Exclusive throughout hospitalization Discharge Summary Reason For Visit: INDUCTION OF LABOR Current Active Problems Oligohydramnios (Acute) Status post primary low transverse section (Acute) Procedures: Principal: sECTION Condition: Good - Instructions Diet, Activity, Other Instructions: Physical activity Resume your normal everyday activity as tolerated no heavy lifting or exercise until seen by your surgeon. You may walk unlimited clovis of and climb stairs. You may resume driving the car when you feel safe and comfortable behind the wheel. No sexual activity as instructed. Wound care If you have a bandage, leave it on, and keep dry for 48-72 hours. After that time discard the outer bandage. If they are tapes on the skin under the out of bandage leave them in place. They will peel off in the next 7 to 10 days. Do Not Peel them off. You may shower the day after surgery. If there are tapes present on the skin, you may shower over them. Diet There are no dietary restrictions. Eat healthy, high-fiber foods. Drink 6 to 8 glasses of liquid each day. This will assist in keeping your bowels are regular. Pain management You may take Tylenol or acetaminophen or Ibuprofen (for example, Motrin, Advil etc.) from my pain prescription medication is ordered should be taken as prescribed for moderate to severe pain. Call MD for any of the following: Severe pain not relieved by medication Fever of 101 or higher Excessive bleeding or drainage on dressing Inability to urinate Disposition: HOME - Home Medications Comprehensive Discharge Medication List: Ambulatory Orders Pnv No.95/Ferrous Fum/Folic AC [ Formula] 1 each PO DAILY 07/31/20 Nifedipine ER [Procardia XL -] 30 mg PO BID 30 Days #60 tab.er.24 08/05/20
[2020-08-06 12:04] VITALS: BP 132/86; PULSE 94; TEMP 98
--- NOTE | 2020-08-08 17:21 | PATH ---
Surgical Pathology Report Patient Name: LUISA MARTINEZ Med. Rec. 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 Specimen(s) Received PLACENTA Clinical History 39.1 weeks, , nonreassuring heart rate Final Diagnosis PLACENTA: THIRD TRIMESTER PLACENTA WITH FOCALLY INCREASED INTERVILLOUS AND PERIVLLOUS FIBRIN DEPOSITION. TRIVASCULAR CORD. MEMBRANES WITH NO DIAGNOSTIC ABNORMALITIES. Electronically Signed Alia Cullen M.D. Gross Description The specimen is received fresh labeled placenta and is a 502 gram, 15.5 x 13.0 x 3.5 cm. placenta with attached membranes and umbilical cord. The attached membranes are guzman, translucent with focal opacities and insert marginally. The umbilical cord measures 16 cm. in length and averages 1.2 cm. in diameter. The cord inserts eccentrically, 2 cm. to the nearest margin. No true knots or strictures are identified. Cut surface of the umbilical cord reveals 3 vessels. The surface is hawkins-blue with minimal fibrin deposition and appropriate caliber vessels. The maternal surface is red-brown with focal defects. Sectioning reveals red-brown, spongy parenchyma. No lesions are identified. Cash Sales Audit Clerk sections are submitted in three cassettes as follows: 1- membrane rolls and umbilical cord; 2-3- full thickness sections of placenta. /08/07/2020 saudi08/07/2020
== END 2020-08-06 12:30 | disposition home or self-care (01) | DRG 787 ==
LOC: JLDR 11:55 → J3N 08-02 09:00 → J3W 08-03 15:39
PROVIDERS: ADMIT Obstetrics & Gynecology; ATTEND Obstetrics & Gynecology
PROC: 3E0P7VZ Introduction of Hormone into Female Reproductive, Via Natural or Artificial Opening (ICD-10-PCS; 2020-08-01)
PROC: 10D00Z1 Extraction of Products of Conception, Low, Open Approach (ICD-10-PCS; principal; 2020-08-02)
PROC: 3E0334Z Introduction of Serum, Toxoid and Vaccine into Peripheral Vein, Percutaneous Approach (ICD-10-PCS; 2020-08-02)
DX: O36.8330 Maternal care for abnormalities of the fetal heart rate or rhythm, third trimester, not applicable or unspecified (principal); O41.03X0 Oligohydramnios, third trimester, not applicable or unspecified; O99.214 Obesity complicating childbirth; O13.3 Gestational [pregnancy-induced] hypertension without significant proteinuria, third trimester; O99.02 Anemia complicating childbirth; Z29.13 Encounter for prophylactic Rho(D) immune globulin; Z3A.39 39 weeks gestation of pregnancy; Z37.0 Single live birth
CPT/HCPCS: 36415; 36600; 80048; 81003; 82565; 82803; 82977; 83010; 84156; 84450; 84460; 84550; 85025; 85027; 85032; 85045; 85461; 85610; 85730; 86780; 86850; 86870; 86900; 86901; 86902; 86999; 88307-TC; 90715; J0131; U0003